=== PATIENT | female | born 1990 | race Two or more races ===

== ENCOUNTER 2021-11-27 20:34 | Emergency (ER) | payer OTHER ==
[~2021-11-27] VITALS: Ht 154.9 cm; Wt 63.5 kg
[2021-11-27 22:30] VITALS: BP 122/75
[2021-11-27] MEDS ORDERED: PRED50TA PO (22:37)
== END 2021-11-27 22:50 | disposition home or self-care (01) ==
LOC: ER 20:36
DX: T78.3XXA Angioneurotic edema, initial encounter (principal); Z60.2 Problems related to living alone; Z79.52 Long term (current) use of systemic steroids